=== PATIENT | male | born 1980 | race Caucasian/White ===

== ENCOUNTER 2022-07-31 10:01 | Emergency (ER) | payer SELFPAY ==
[2022-07-31] MEDS ORDERED: EPINEPHrine 1 MG/10 ML Abboject SYRINGE ONE (11:12)
[2022-07-31] MEDS ORDERED: Lidocaine 2% PF 100 mg/5 ml Syringe ONE (11:12)
[2022-07-31] MEDS ORDERED: Magnesium 5 GM/10 ML Abboject SYRINGE ONE (11:12)
[2022-07-31] MEDS ORDERED: Sodium Bicarb 50 MEQ/50 ML Abboject 8.4% SYRINGE ONE (11:12)
== END 2022-07-31 10:16 | disposition expired ==
LOC: ERS 10:01
DX: I46.9 Cardiac arrest, cause unspecified (principal); J96.91 Respiratory failure, unspecified with hypoxia; F17.210 Nicotine dependence, cigarettes, uncomplicated
CPT/HCPCS: 31500; 92950; J0171; J2001; J3475